=== PATIENT | female | born 1965 | race Caucasian/White ===

== ENCOUNTER → 2018-01-02 | Day surgery (SDC) | payer BC ==
[~2018-01-02] MED LIST: CALC1TAB87 PO; CYCL5TAB PO; DIPH25CA PO; FEXO180T PO; FLUT1SPR5 EACH NARE; GLUC15009 PO; IBUP1TAB5 PO; IOHEXOL 180 MG/ML 20 ML VIAL (for RAD DIAG) EPIDURAL ONE; LIDOCAINE HCL 1% 30 ML VIAL NERV BLOCK ONE; MEPERIDINE HCL 25 MG/ML VIAL IV ONE; MULT-65 PO; NEUR300C PO; OMEG1CAP50 PO; PROPOFOL 200 MG/20 ML AMP IV ONE; REST0.05 EACH EYE; TRIAMCINOLONE ACETONIDE 40 MG/ML VIAL NERV BLOCK ONE
--- NOTE | 2018-01-02 08:48 | M6 ---
cc: Seymour Red MD DATE: 01/02/2018 PROCEDURE PERFORMED: Fluoroscopically-guided left L3-L4 transforaminal epidural steroid injection. History and physical was completed and signed. Consent was signed. Procedure site was marked. Medications were listed and reconciled. Pain score was recorded. Allergies were noted. Time out was taken. Fluoroscopy time was recorded where applicable. Sedation was administered or directed by Dr. Red. The patient was given oxygen. The patient was monitored by a registered nurse. Total procedure time was greater than 15 minutes. DESCRIPTION OF PROCEDURE: IV was started. Blood pressure cuff, pulse oximeter and EKG were applied. The patient was placed in the prone position on a Anthony table, sedated with small amounts of Propofol titrated to effect. The vital signs were monitored and remained stable throughout the procedure. Lumbar area was prepped with alcohol and 10% Betadine solution and draped with sterile drapes. Fluoroscopy was used in both AP and lateral projection to clearly visualize the left L3-L4 neural foramen. A 3-1/2 inch, 22-gauge Chiba needle was advanced into the dorsal aspect of the foramen. There was negative aspiration for blood or any other type of fluid. Omnipaque dye was injected and then the patient was given 3 mL of 1% Xylocaine, 2 mL of normal saline and 60 mg of Kenalog. Following this, the patient was taken to the recovery room with stable vital signs, neurologically intact. She will be evaluated immediately and with followup to determine if she has a subjective decrease in her usual pain and a corresponding objective increase in her functional capabilities. MD HUMBERTO Romero/MICHEL , 08:31 AM , 08:46 AM
--- NOTE | 2018-01-02 08:51 | M6 ---
cc: Seymour Red MD DATE: 01/02/2018 DATE OF PROCEDURE: 01/02/2018 PROCEDURE PERFORMED: Fluoroscopically guided epidurogram. PREPROCEDURE DIAGNOSIS: L3-L4 herniated disks. POSTPROCEDURE DIAGNOSIS: L3-L4 herniated disks. DESCRIPTION OF PROCEDURE: Ms. Jacobson has left lower extremity pain. She has an MRI showing a left-sided herniated disk encroaching on the left L3 nerve root and causing some foraminal stenosis at that level. We are injecting Omnipaque dye on the left L3 nerve root in order to observe whether the contrast material flows distally along the nerve, as well as medially through the neural foramen. If the medication does not flow through the neural foramen. This may change our treatment procedures in the future. Once the needle was placed directly on the nerve, 3 mL of Omnipaque was injected. The contrast was seen to flow through the L3-L4 neural foramen, into the central epidural space. A hard copy of the x-ray was saved for the patient's chart, and based on the fact that the dye is flowing through the neural foramen, I believe we could repeat this procedure in the future if necessary. MD SARAH RomeroM/MICHEL , 08:35 AM , 08:49 AM
== END | disposition home or self-care (01) ==
LOC: PHSDC 06:36
PROVIDERS: ATTEND Pain Medicine Interventional Pain Medicine
DX: M51.26 Other intervertebral disc displacement, lumbar region (principal)
CPT/HCPCS: 64483; 99152; J2175; J3301; Q9965